=== PATIENT | female | born 1965 | race Caucasian/White ===

== ENCOUNTER 2016-08-31 11:50 | Inpatient (IN) | payer OTHER ==
[~2016-08-31] VITALS: Ht 172.7 cm; Wt 83.0 kg
[~2016-08-31 11:50] MED LIST: ADDERALL20 MG PO; ALPRAZOLAM1 MG PO; AMBIEN5 MG PO; ATIVAN1 MG PO; Advair HFA 115/21 IH; Ativan PO; BACLOFEN20 MG PO; CLINDAMYCIN HC300 MG PO; DuoNeb IH; FUROSEMIDE20 MG PO; GABAPENTIN100 MG PO; GABAPENTIN300 MG PO; HYDROCHLOROTH12.5 M3 PO; HYDROXYZINE PAM50 MG PO; Habitrol,Nicoderm CQ TD; INDERAL20 MG PO; Inderal PO; LIBRIUM25 MG PO; Levaquin PO; METHadone HCl PO; MIRTAZAPINE30 MG PO; NALTREXONE HCL50 MG PO; NEURONTIN600 MG PO; Neurontin PO; OXYCODONE HCL15 MG PO; OXYCONTIN15 MG PO; PERPHENAZINE16 MG PO; PERPHENAZINE8 MG PO; Pepcid PO; Percocet 5/325,Endoc PO; SERTRALINE HCL100 MG PO; THIAMINE HCL100 MG PO; TRAZODONE HCL150 MG PO; Theo-Dur,Theocron PO; ZOFRAN4 MG PO; ZOLOFT100 MG PO; predniSONE PO
[2016-08-31] MEDS ORDERED: ADDERALL10 MG PO (12:12)
[2016-08-31 13:39] LABS: HEMATOCRIT 37.8 % (36.0-46.0); MCH 30.8 PG (29.0-34.0); MCHC 36.8 G/DL (30.0-36.0); MCV 83.6 FL (83-99); PLATELET COUNT 278 K/uL (156-360); RBC DIS.WIDTH-SD 38.7 % (39-53); RED BLOOD COUNT 4.52 M/uL (3.80-5.20); WHITE BLOOD COUNT 22.2 K/uL (4.1-10.2)
[2016-08-31 13:52] LABS: CHLORIDE 76 mEq/L (99-109); POTASSIUM 3.6 mEq/L (3.7-5.4)
[2016-08-31 13:53] LABS: GLUCOSE 113 mg/dL (70-99)
[2016-08-31 13:55] LABS: ANION GAP 15 MEQ/L (2-14)
[2016-08-31 13:56] LABS: SERUM ETHYL ALCOHOL < 10 mg/dL
[2016-08-31 13:57] LABS: GFR ESTIMATE (CALCULATED) > 59 mL/min/
[2016-08-31 13:59] LABS: TROP-I INTERPRETATION NEGATIVE; TROPONIN-I < 0.01 ng/mL (0.0-0.30); UREA NITROGEN (BUN) 9 mg/dL (9-23)
[2016-08-31 14:00] LABS: SALICYLATE < 5.0 MG/DL (15-30)
[2016-08-31 14:06] LABS: SODIUM 112 mEq/L (136-147)
[2016-08-31 15:56] LABS: ADD MIUA? YES; BILIRUBIN NEGATIVE; BLOOD SMALL; COLOR YELLOW ((YELLOW)); GLUCOSE (STRIP) 50; KETONES 5; LEUKOCYTES NEGATIVE; NITRITE NEGATIVE; PROTEIN (STRIP) NEGATIVE; SPECIFIC GRAVITY 1.008 (1.000-1.030); UROBILINOGEN 0.2 MG/DL (0.2-1.0)
[2016-08-31 15:57] LABS: BACTERIA NONE SEEN /HPF; EPITHELIAL CELLS 2+ /HPF; MUCUS TRACE /LPF; RED BLOOD CELLS 0-5 /HPF (0-5); UCUL ADDED? NO; WHITE BLOOD CELLS 0-5 /HPF (0-5)
[2016-08-31 16:34] LABS: CHLORIDE 82 mEq/L (99-109); POTASSIUM 3.3 mEq/L (3.7-5.4)
[2016-08-31 16:36] LABS: GLUCOSE 118 mg/dL (70-99)
[2016-08-31 16:37] LABS: ANION GAP 11 MEQ/L (2-14)
[2016-08-31 16:39] LABS: GFR ESTIMATE (CALCULATED) > 59 mL/min/
[2016-08-31 16:40] LABS: SODIUM 117 mEq/L (136-147); UREA NITROGEN (BUN) 8 mg/dL (9-23)
[2016-08-31 20:26] VITALS: BP 116/81
[2016-08-31 21:00] VITALS: BP 118/65
[2016-08-31 21:53] LABS: EOSINOPHIL (%) 0.1 % (0-5); HEMATOCRIT 35.7 % (36.0-46.0); IMMATURE GRANULOCYTE COUNT 0.1 K/uL; INSTRUMENT ABS NEUTROPHIL CT 8.8 K/uL; LYMPHOCYTE COUNT 2.5 K/uL (1.0-2.8); MCH 31.1 PG (29.0-34.0); MCV 84.2 FL (83-99); MEAN PLAT.VOLUME 8.8 uM^3 (9.5-12.4); MONOCYTE (%) 8.6 % (3-12); MONOCYTE COUNT 1.1 K/uL (0-0.8); NEUTROPHIL (%) 70.2 % (45-76); NEUTROPHIL COUNT 8.8 K/uL (1.8-6.4); PLATELET COUNT 264 K/uL (156-360); RBC DIS.WIDTH-CV 13.2 % (11.8-14.6); RBC DIS.WIDTH-SD 39.9 % (39-53); RED BLOOD COUNT 4.24 M/uL (3.80-5.20); WHITE BLOOD COUNT 12.5 K/uL (4.1-10.2)
[2016-08-31 21:54] LABS: ANION GAP 8 MEQ/L (2-14); CHLORIDE 85 MEQ/L (99-109); MAGNESIUM 1.8 mg/dl (1.3-2.7); POTASSIUM 2.7 MEQ/L (3.7-5.4); SAMPLE HEMOLYSIS CHECK 0; SAMPLE ICTERIC CHECK 0; SAMPLE LIPEMIA CHECK 0; SODIUM 121 MEQ/L (136-147); TOTAL BILIRUBIN 1.5 MG/DL (0.0-1.0)
[2016-08-31 21:59] LABS: METH RESISTANT S AUREUS PCR NEGATIVE (NEGATIVE)
[2016-08-31 21:59] LABS: ALKALINE PHOSPHATASE 62 IU/L (3-129); GFR ESTIMATE (CALCULATED) > 59 mL/min/; GLUCOSE 104 mg/dL (70-99); UREA NITROGEN (BUN) 7 mg/dL (9-23)
[2016-08-31 22:00] VITALS: BP 121/70
[2016-08-31 22:18] LABS: PROBE CHECK PASS; SPECIMEN PROCESSING CONTROL PASS
[2016-08-31 23:00] VITALS: BP 97/60
[2016-09-01] VITALS (21 sets, daily range): BP systolic 83–124; BP diastolic 49–74
[2016-09-01 02:43] LABS: POTASSIUM 3.1 mEq/L (3.7-5.4); SODIUM 127 mEq/L (136-147)
[2016-09-01 02:44] LABS: CHLORIDE 92 mEq/L (99-109)
[2016-09-01 02:45] LABS: GLUCOSE 102 mg/dL (70-99)
[2016-09-01 02:47] LABS: ANION GAP 9 MEQ/L (2-14)
[2016-09-01 02:49] LABS: GFR ESTIMATE (CALCULATED) > 59 mL/min/
[2016-09-01 02:50] LABS: UREA NITROGEN (BUN) 6 mg/dL (9-23)
[2016-09-01 06:32] LABS: HEMATOCRIT 35.6 % (36.0-46.0); MCH 31.6 PG (29.0-34.0); MCHC 36.8 G/DL (30.0-36.0); MCV 85.8 FL (83-99); MEAN PLAT.VOLUME 9.4 uM^3 (9.5-12.4); PLATELET COUNT 262 K/uL (156-360); RBC DIS.WIDTH-CV 13.5 % (11.8-14.6); RBC DIS.WIDTH-SD 41.2 % (39-53); RED BLOOD COUNT 4.15 M/uL (3.80-5.20); WHITE BLOOD COUNT 9.8 K/uL (4.1-10.2)
[2016-09-01 07:04] LABS: ANION GAP 10 MEQ/L (2-14); GFR ESTIMATE (CALCULATED) > 59 mL/min/; GLUCOSE 103 mg/dL (70-99); MAGNESIUM 1.9 mg/dl (1.3-2.7); POTASSIUM 3.2 MEQ/L (3.7-5.4); SAMPLE HEMOLYSIS CHECK 0; SAMPLE ICTERIC CHECK 0; SAMPLE LIPEMIA CHECK 0; SODIUM 129 MEQ/L (136-147); UREA NITROGEN (BUN) 6 mg/dL (9-23)
[2016-09-01 07:09] LABS: CHLORIDE 94 MEQ/L (99-109)
[2016-09-01 13:50] LABS: ANION GAP 8 MEQ/L (2-14); CHLORIDE 98 MEQ/L (99-109); GFR ESTIMATE (CALCULATED) > 59 mL/min/; GLUCOSE 99 mg/dL (70-99); POTASSIUM 3.4 MEQ/L (3.7-5.4); SAMPLE HEMOLYSIS CHECK 0; SAMPLE ICTERIC CHECK 0; SAMPLE LIPEMIA CHECK 0; SODIUM 132 MEQ/L (136-147); UREA NITROGEN (BUN) 6 mg/dL (9-23)
[2016-09-01] MEDS ORDERED: OXYCODONE-APAP1 EACH PO (13:52)
[2016-09-01] MEDS ORDERED: ALPRAZOLAM1 MG PO (13:53)
[2016-09-01] MEDS ORDERED: DEXTROAMP-AMPHE20 MG PO (13:53)
[2016-09-01] MEDS ORDERED: OXYCONTIN15 MG PO (13:53)
[2016-09-01] MEDS ORDERED: GABAPENTIN300 MG PO (13:54)
[2016-09-01] MEDS ORDERED: SERTRALINE HCL100 MG PO (13:54)
[2016-09-01] MEDS ORDERED: ZOLPIDEM TARTRA10 MG PO (13:54)
[2016-09-01] MEDS ORDERED: FLONASE16 G1 BOTH NARES (13:55)
[2016-09-01 15:31] LABS: MAGNESIUM 2.2 mg/dl (1.3-2.7)
[2016-09-01 18:50] LABS: ANION GAP 8 MEQ/L (2-14); CHLORIDE 100 MEQ/L (99-109); GFR ESTIMATE (CALCULATED) > 59 mL/min/; GLUCOSE 124 mg/dL (70-99); POTASSIUM 3.2 MEQ/L (3.7-5.4); SAMPLE HEMOLYSIS CHECK 0; SAMPLE ICTERIC CHECK 0; SAMPLE LIPEMIA CHECK 0; SODIUM 134 MEQ/L (136-147); UREA NITROGEN (BUN) 6 mg/dL (9-23)
[2016-09-02] VITALS (8 sets, daily range): BP systolic 87–98; BP diastolic 50–71
[2016-09-02 00:57] LABS: POTASSIUM 3.4 mEq/L (3.7-5.4); SODIUM 137 mEq/L (136-147)
[2016-09-02 00:59] LABS: GLUCOSE 119 mg/dL (70-99)
[2016-09-02 01:00] LABS: ANION GAP 9 MEQ/L (2-14)
[2016-09-02 01:03] LABS: GFR ESTIMATE (CALCULATED) > 59 mL/min/
[2016-09-02 01:04] LABS: UREA NITROGEN (BUN) 8 mg/dL (9-23)
[2016-09-02 01:05] LABS: CHLORIDE 105 mEq/L (99-109)
[2016-09-02 06:26] LABS: HEMATOCRIT 34.8 % (36.0-46.0); MCH 31.5 PG (29.0-34.0); MCHC 35.1 G/DL (30.0-36.0); MCV 89.9 FL (83-99); MEAN PLAT.VOLUME 9.6 uM^3 (9.5-12.4); PLATELET COUNT 253 K/uL (156-360); RBC DIS.WIDTH-CV 14.2 % (11.8-14.6); RBC DIS.WIDTH-SD 45.1 % (39-53); RED BLOOD COUNT 3.87 M/uL (3.80-5.20); WHITE BLOOD COUNT 8.6 K/uL (4.1-10.2)
[2016-09-02 06:50] LABS: ANION GAP 7 MEQ/L (2-14); CHLORIDE 102 MEQ/L (99-109); GFR ESTIMATE (CALCULATED) > 59 mL/min/; GLUCOSE 126 mg/dL (70-99); POTASSIUM 3.9 MEQ/L (3.7-5.4); SAMPLE HEMOLYSIS CHECK 0; SAMPLE ICTERIC CHECK 0; SAMPLE LIPEMIA CHECK 0; SODIUM 135 MEQ/L (136-147); UREA NITROGEN (BUN) 8 mg/dL (9-23)
[2016-09-02 13:43] LABS: ANION GAP 5 MEQ/L (2-14); CHLORIDE 105 MEQ/L (99-109); GFR ESTIMATE (CALCULATED) > 59 mL/min/; POTASSIUM 3.5 MEQ/L (3.7-5.4); SAMPLE HEMOLYSIS CHECK 0; SAMPLE ICTERIC CHECK 0; SAMPLE LIPEMIA CHECK 0; SODIUM 137 MEQ/L (136-147); UREA NITROGEN (BUN) 7 mg/dL (9-23)
[2016-09-02 13:57] LABS: GLUCOSE 79 mg/dL (70-99)
== END 2016-09-02 15:00 | disposition home or self-care (01) | DRG 641 ==
LOC: EME 11:50 → EDOF 17:54 → 4WEST 17:54
PROVIDERS: Emergency Medicine
PROC: 0HQ0XZZ Repair Scalp Skin, External Approach (ICD-10-PCS; principal; 2016-08-31)
DX: E87.1 Hypo-osmolality and hyponatremia (principal); F10.231 Alcohol dependence with withdrawal delirium; F32.9 Major depressive disorder, single episode, unspecified; J44.9 Chronic obstructive pulmonary disease, unspecified; E07.9 Disorder of thyroid, unspecified; S01.01XA Laceration without foreign body of scalp, initial encounter; R45.1 Restlessness and agitation; F17.200 Nicotine dependence, unspecified, uncomplicated; W19.XXXA Unspecified fall, initial encounter; M54.2 Cervicalgia; E87.6 Hypokalemia; F41.9 Anxiety disorder, unspecified; Y93.9 Activity, unspecified; Y92.9 Unspecified place or not applicable; Z85.3 Personal history of malignant neoplasm of breast; T52.4X1A Toxic effect of ketones, accidental (unintentional), initial encounter
CPT/HCPCS: 70450; 72125; 80048; 80048 91; 80053; 81003; 82436; 83735; 83930; 83935; 84100; 84300; 84484; 85025; 85027; 87086; 87641; 93005; 94760; 94799; 99281; 99285; G0480; J1630; J1650; J2060; J2250; J3010; J3411; J3475; J3480; J7030; J7040; J7050; S0028

== ENCOUNTER 2016-10-10 08:30 | Emergency (ER) | payer OTHER ==
[~2016-10-10] VITALS: Ht 172.7 cm; Wt 86.8 kg
[~2016-10-10 08:30] MED LIST changes: +ADDERALL10 MG PO; +DEXTROAMP-AMPHE20 MG PO; +FLONASE16 G1 BOTH NARES; +OXYCODONE-APAP1 EACH PO; +ZOLPIDEM TARTRA10 MG PO
[2016-10-10 09:06] LABS: HEMATOCRIT 34.9 % (36.0-46.0); MCH 31.6 PG (29.0-34.0); MCHC 35.2 G/DL (30.0-36.0); MCV 89.7 FL (83-99); MEAN PLAT.VOLUME 9.4 uM^3 (9.5-12.4); PLATELET COUNT 233 K/uL (156-360); RBC DIS.WIDTH-CV 13.5 % (11.8-14.6); RBC DIS.WIDTH-SD 43.2 % (39-53); RED BLOOD COUNT 3.89 M/uL (3.80-5.20); WHITE BLOOD COUNT 11.4 K/uL (4.1-10.2)
[2016-10-10 09:10] LABS: ADD MIUA? YES; BILIRUBIN NEGATIVE; BLOOD NEGATIVE; COLOR YELLOW ((YELLOW)); GLUCOSE (STRIP) NEGATIVE; KETONES 5; LEUKOCYTES NEGATIVE; NITRITE NEGATIVE; PROTEIN (STRIP) NEGATIVE; SPECIFIC GRAVITY 1.019 (1.000-1.030); UROBILINOGEN 0.2 MG/DL (0.2-1.0)
[2016-10-10 09:17] LABS: CHLORIDE 97 mEq/L (99-109); POTASSIUM 3.7 mEq/L (3.7-5.4); SODIUM 134 mEq/L (136-147)
[2016-10-10 09:19] LABS: GLUCOSE 106 mg/dL (70-99)
[2016-10-10 09:20] LABS: ANION GAP 13 MEQ/L (2-14)
[2016-10-10 09:21] LABS: TOTAL BILIRUBIN 0.6 mg/dL (0.0-1.0)
[2016-10-10 09:22] LABS: SERUM ETHYL ALCOHOL < 10 mg/dL
[2016-10-10 09:23] LABS: GFR ESTIMATE (CALCULATED) > 59 mL/min/
[2016-10-10 09:24] LABS: ALKALINE PHOSPHATASE 88 IU/L (3-129)
[2016-10-10 09:24] LABS: BACTERIA NONE SEEN /HPF; EPITHELIAL CELLS 1+ /HPF; HYALINE CASTS 20-30 /LPF; MUCUS TRACE /LPF; RED BLOOD CELLS 0-5 /HPF (0-5); UCUL ADDED? NO; WHITE BLOOD CELLS 0-5 /HPF (0-5)
[2016-10-10 09:25] LABS: UREA NITROGEN (BUN) 12 mg/dL (9-23)
[2016-10-10 09:26] LABS: SALICYLATE < 5.0 MG/DL (15-30)
[2016-10-10 09:27] LABS: AMPHETAMINE NEGATIVE (500 ng/mL); BARBITURATES NEGATIVE (200 ng/mL); BENZODIAZEPINES NEGATIVE (150 ng/mL); COCAINE NEGATIVE (150 ng/mL); METHADONE NEGATIVE (200 ng/mL); METHAMPHETAMINE NEGATIVE (500 ng/mL); OPIATES (MORPHINE) NEGATIVE (100 ng/mL); PHENCYCLIDINE NEGATIVE (25 ng/mL); THC CANNABINOIDS NEGATIVE (50 ng/mL); TRICYCLIC ANTIDEPRESSANTS PRESUMPTIVE POSITIVE (300 ng/mL)
[2016-10-10 09:28] LABS: INTERNAL CONTROLS VALID? YES; OXYCODONE PRESUMPTIVE POSITIVE (100 ng/mL); PROPOXYPHENE NEGATIVE (300 ng/mL)
[2016-10-10 09:32] LABS: QUANTITATIVE HCG < 4.0 MIU/ML
[2016-10-10 15:21] VITALS: BP 115/92
== END 2016-10-10 15:22 | disposition home or self-care (01) ==
LOC: EME → EDBD 08:30 → EME 15:22
PROVIDERS: Nurse Practitioner Family
DX: R41.82 Altered mental status, unspecified (principal); G47.00 Insomnia, unspecified; F33.3 Major depressive disorder, recurrent, severe with psychotic symptoms; F10.20 Alcohol dependence, uncomplicated; F11.20 Opioid dependence, uncomplicated; F13.20 Sedative, hypnotic or anxiolytic dependence, uncomplicated; I10 Essential (primary) hypertension; J44.9 Chronic obstructive pulmonary disease, unspecified; K21.9 Gastro-esophageal reflux disease without esophagitis; Z88.5 Allergy status to narcotic agent; Z88.0 Allergy status to penicillin; F17.200 Nicotine dependence, unspecified, uncomplicated
CPT/HCPCS: 80053; 81003; 84702; 85027; 90839; 99281; 99284; G0480; J2060; J3486

== ENCOUNTER 2016-11-05 11:44 | Emergency (ER) | payer OTHER ==
[~2016-11-05] VITALS: Ht 172.7 cm; Wt 81.8 kg
[2016-11-05 12:42] VITALS: BP 129/95
== END 2016-11-05 12:42 | disposition home or self-care (01) ==
LOC: EME 11:44
DX: F10.239 Alcohol dependence with withdrawal, unspecified (principal); Z85.3 Personal history of malignant neoplasm of breast; F17.200 Nicotine dependence, unspecified, uncomplicated

== ENCOUNTER 2017-01-15 16:41 | Emergency (ER) | payer OTHER ==
[~2017-01-15] VITALS: Ht 167.6 cm; Wt 79.9 kg
[2017-01-15] MEDS ORDERED: ZOFRAN ODT4 MG PO (18:15)
[2017-01-15] MEDS ORDERED: ATIVAN2 MG PO (18:15)
[2017-01-15] MEDS ORDERED: THIAMINE HCL100 MG PO (18:15)
[2017-01-15 18:56] VITALS: BP 125/87
== END 2017-01-15 18:57 | disposition home or self-care (01) ==
LOC: EME 16:41
DX: F10.239 Alcohol dependence with withdrawal, unspecified (principal); F32.9 Major depressive disorder, single episode, unspecified; J44.9 Chronic obstructive pulmonary disease, unspecified; F17.200 Nicotine dependence, unspecified, uncomplicated; Z85.3 Personal history of malignant neoplasm of breast; Z88.0 Allergy status to penicillin
CPT/HCPCS: 99281; 99284; J2060

== ENCOUNTER 2017-01-21 20:53 | Emergency (ER) | payer OTHER ==
[~2017-01-21] VITALS: Ht 172.7 cm; Wt 79.8 kg
[~2017-01-21 20:53] MED LIST changes: +ATIVAN2 MG PO; +ZOFRAN ODT4 MG PO
[2017-01-21] MEDS ORDERED: NAPROXEN500 MG PO (22:30)
[2017-01-21 23:26] VITALS: BP 103/80
== END 2017-01-21 23:28 | disposition home or self-care (01) ==
LOC: EME 20:53
DX: M25.561 Pain in right knee (principal); M25.562 Pain in left knee; M17.0 Bilateral primary osteoarthritis of knee; F32.9 Major depressive disorder, single episode, unspecified; J44.9 Chronic obstructive pulmonary disease, unspecified; F17.200 Nicotine dependence, unspecified, uncomplicated; Z85.3 Personal history of malignant neoplasm of breast; Z88.0 Allergy status to penicillin
CPT/HCPCS: 99281; 99284; J1885

== ENCOUNTER → 2017-02-09 19:31 | Emergency (ER) | payer OTHER ==
[~2017-02-09] VITALS: Ht 172.7 cm; Wt 79.8 kg
[~2017-02-09 19:31] MED LIST changes: +NAPROXEN500 MG PO
[2017-02-09 19:39] VITALS: BP 112/77
== END | disposition left against medical advice (07) ==
LOC: EME 19:31
DX: F10.129 Alcohol abuse with intoxication, unspecified (principal); Z53.21 Procedure and treatment not carried out due to patient leaving prior to being seen by health care provider

== ENCOUNTER 2017-02-13 11:13 | Emergency (ER) | payer OTHER ==
[~2017-02-13] VITALS: Ht 172.7 cm; Wt 79.2 kg
[2017-02-13 11:23] VITALS: BP 120/86
== END 2017-02-13 13:32 | disposition left against medical advice (07) ==
LOC: EME 11:13
DX: F10.10 Alcohol abuse, uncomplicated (principal); Z53.21 Procedure and treatment not carried out due to patient leaving prior to being seen by health care provider

== ENCOUNTER 2017-07-13 17:32 | Emergency (ER) | payer OTHER ==
[~2017-07-13] VITALS: Ht 172.7 cm; Wt 78.1 kg
[2017-07-13 17:54] LABS: HEMATOCRIT 41.2 % (36.0-46.0); HEMOGLOBIN 14.6 G/DL (11.9-15.5); MCH 33.9 PG (29.0-34.0); MCHC 35.4 G/DL (30.0-36.0); MCV 95.6 FL (83-99); PLATELET COUNT 211 K/uL (156-360); RBC DIS.WIDTH-CV 14.6 % (11.8-14.6); RBC DIS.WIDTH-SD 51.4 % (39-53); RED BLOOD COUNT 4.31 M/uL (3.80-5.20); WHITE BLOOD COUNT 6.2 K/uL (4.1-10.2)
[2017-07-13 18:19] LABS: CHLORIDE 109 mEq/L (99-109); POTASSIUM 3.4 mEq/L (3.7-5.4); SODIUM 147 mEq/L (136-147)
[2017-07-13 18:20] LABS: GLUCOSE 99 mg/dL (70-99)
[2017-07-13 18:24] LABS: CREATININE 0.6 mg/dL (0.6-1.3); GFR ESTIMATE (CALCULATED) > 59 mL/min/; SERUM ETHYL ALCOHOL 171 mg/dL
[2017-07-13 18:25] LABS: UREA NITROGEN (BUN) 8 mg/dL (9-23)
[2017-07-13 19:03] VITALS: BP 107/70
== END 2017-07-13 19:04 | disposition home or self-care (01) ==
LOC: EME 17:32
PROVIDERS: Emergency Medicine Emergency Medical Services
DX: F32.9 Major depressive disorder, single episode, unspecified (principal); F10.129 Alcohol abuse with intoxication, unspecified; Y90.6 Blood alcohol level of 120-199 mg/100 ml; F43.9 Reaction to severe stress, unspecified; Z04.6 Encounter for general psychiatric examination, requested by authority; J44.9 Chronic obstructive pulmonary disease, unspecified; M19.90 Unspecified osteoarthritis, unspecified site; F17.200 Nicotine dependence, unspecified, uncomplicated; Z85.3 Personal history of malignant neoplasm of breast; Z88.5 Allergy status to narcotic agent; Z88.0 Allergy status to penicillin; Z91.013 Allergy to seafood
CPT/HCPCS: 80048; 85027; 99281; 99285; G0480